=== PATIENT | male | born 1960 | race Caucasian/White ===

== ENCOUNTER 2017-03-29 20:42 | Emergency (ER) | payer OTHER ==
[~2017-03-29] VITALS: Ht 162.6 cm; Wt 82.1 kg
[~2017-03-29 20:42] MED LIST: VICODIN 5/500 M1 TAB PO
[2017-03-29 20:59] VITALS: BP 181/117
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
--- NOTE | 2017-03-29 22:27 | NUR ---
PT AMBULATED TO ER BED 08
[2017-03-29] MEDS ORDERED: fentaNYL 0.05 MG/ML VIAL IM ONE (22:50)
== END 2017-03-29 23:27 | disposition home or self-care (01) ==
LOC: MED 20:42
DX: G89.29 Other chronic pain (principal); M25.512 Pain in left shoulder; I10 Essential (primary) hypertension; Z88.6 Allergy status to analgesic agent; E11.9 Type 2 diabetes mellitus without complications
CPT/HCPCS: 96372; 99283; J3010

== ENCOUNTER 2017-12-13 12:30 | Emergency (ER) | payer OTHER ==
[~2017-12-13] VITALS: Ht 180.3 cm; Wt 81.6 kg
[~2017-12-13 12:30] MED LIST changes: +VIC PO; -VICODIN 5/500 M1 TAB PO
[2017-12-13 12:34] VITALS: BP 149/103
[2017-12-13 14:05] VITALS: BP 149/103
== END 2017-12-13 14:06 | disposition home or self-care (01) ==
LOC: MED 12:30
DX: S43.001A Unspecified subluxation of right shoulder joint, initial encounter (principal); E11.9 Type 2 diabetes mellitus without complications; I10 Essential (primary) hypertension; Z88.8 Allergy status to other drugs, medicaments and biological substances; X58.XXXA Exposure to other specified factors, initial encounter; Y93.89 Activity, other specified; Y99.8 Other external cause status; Y92.89 Other specified places as the place of occurrence of the external cause
CPT/HCPCS: 23650; 73030; 99284; Q0092

== ENCOUNTER 2021-01-14 18:16 | Emergency (ER) | payer MEDICARE, OTHER ==
[~2021-01-14] VITALS: Ht 177.8 cm; Wt 70.3 kg
[2021-01-14 18:22] VITALS: BP 142/56
--- NOTE | 2021-01-14 20:00 | NUR ---
SEEN AND EXAMINED BY CHRIS.
--- NOTE | 2021-01-14 20:19 | NUR ---
AMBULATED TO ER BED 10
[2021-01-14] MEDS ORDERED: KETOROLAC 30 MG/ML VIAL IM ONE (20:20)
[2021-01-14] MEDS ORDERED: MELO-174 PO (20:22)
[2021-01-14 20:26] VITALS: BP 138/69
--- NOTE | 2021-01-14 20:32 | NUR ---
d/c with VSS. d/c education given . oppportunity to ask questions given and answered. rx of meloxicam given.
== END 2021-01-14 20:34 | disposition home or self-care (01) ==
LOC: MED 18:16
DX: M25.512 Pain in left shoulder (principal); I11.9 Hypertensive heart disease without heart failure; E11.9 Type 2 diabetes mellitus without complications; Z79.899 Other long term (current) drug therapy
CPT/HCPCS: 73030; 96372; 99283; J1885